=== PATIENT | female | born 1975 | race Caucasian/White ===

== ENCOUNTER 2019-01-06 11:28 | Inpatient (IN) | payer OTHER ==
[2019-01-06 12:40] LABS: WHITE BLOOD COUNT 8.6 10^3/ul (4.8-10.8)
[2019-01-06 12:40] LABS: HEMATOCRIT 29.4 % (37.0-47.0); HEMOGLOBIN 8.8 g/dl (12.0-16.0); MEAN CORPUSCULAR HEMOGLOBIN 24.3 pg (29.0-33.0); MEAN CORPUSCULAR HGB CONC 29.9 g/dl (32.0-37.0); MEAN CORPUSCULAR VOLUME 81.2 fl (82.0-101.0); MEAN PLATELET VOLUME 8.5 fl (7.4-10.4); PLATELET COUNT 715 10^3/UL (140-415); RED BLOOD COUNT 3.62 10^6/ul (4.20-5.40); RED CELL DISTRIBUTION WIDTH 17.4 % (11.5-14.5)
[2019-01-06] MEDS: PIPER-TAZO 3.375 GM IV (PMX) 100 ML IVPB (12:43)
[2019-01-06] MEDS: SODIUM CHLORIDE 0.9% 1L BAG IV* (12:43)
[2019-01-06 12:47] LABS: ADD MAN DIFF? YES
[2019-01-06 13:00] LABS: ALANINE AMINOTRANSFERASE 12 IU/L (13-69); ALBUMIN 3.6 g/dl (3.3-4.9); ALBUMIN/GLOBULIN RATIO 0.76; ALKALINE PHOSPHATASE 112 IU/L (42-121); ANION GAP 8 (5-13); ASPARTATE AMINO TRANSFERASE 21 IU/L (15-46); BLOOD UREA NITROGEN 11 mg/dl (7-20); C-REACTIVE PROTEIN 4.8 mg/dl (0.0-0.9); CALCIUM 9.2 mg/dl (8.4-10.2); CARBON DIOXIDE 28 mmol/L (21-31); CHLORIDE 102 mmol/L (97-110); CREATININE 0.67 mg/dl (0.44-1.00); Estimated GFR > 60 mL/min (>60); GLUCOSE 96 mg/dl (70-220); INR 1.07; PARTIAL THROMBOPLASTIN TIME 37.9 Sec (23.0-35.0); POTASSIUM 4.2 mmol/L (3.5-5.1); PT RATIO 1.1; SODIUM 138 mmol/L (135-144); TOTAL PROTEIN 8.3 g/dl (6.1-8.1)
[2019-01-06 13:13] LABS: ANISOCYTOSIS 1+ (0-0); BAND NEUTROPHILS % (M) 1 % (0-4); EOSINOPHILS % (M) 1 % (0-7); LYMPHOCYTES % (M) 24 % (15-51); MICROCYTOSIS 1+ (0-0); MONOCYTE #M 0.4 10^3/ul (0.3-0.9); MONOCYTES % (M) 5 % (0-11); PLATELET ESTIMATE INCREASED; PLATELET MORPHOLOGY COMMENT @See below; POIKILOCYTOSIS 2+ (0-0); POLYCHROMASIA 1+ (0-0); REACTIVE LYMPHOCYTES #M 0.5 10^3/ul (0.0-0.0); REACTIVE LYMPHOCYTES% (M) 6 % (0-0); SEG NEUT #M 5.4 10^3/ul (1.6-7.5); SEGMENTED NEUTROPHILS (M) % 63 % (39-77); SMUDGE%M 13 % (0-0); TARGET CELLS 1+ (0-0); TEAR DROP CELLS 1+ (0-0)
[2019-01-06] MEDS: CLINDAMYCIN 900 MG/D5W (PMX) 50 ML IVPB (13:21)
[2019-01-06 13:55] LABS: ERYTHROCYTE SEDIMENTATION RATE 80 mm/Hr (0-20)
[2019-01-06] MEDS: VANCOMYCIN 1 GM (PMX) 250 ML IVPB (14:24)
[2019-01-06] MEDS ORDERED: ACETAMINOPHEN 325 MG TAB PO (16:00)
[2019-01-06] MEDS ORDERED: ONDANSETRON 4 MG INJ IV (16:00)
[2019-01-06] MEDS ORDERED: NACL 0.9% 3 ML SYG IV (16:30)
[2019-01-06] MEDS ORDERED: HYDROCODONE/APAP (5/325) TAB PO (16:30)
[2019-01-06] MEDS: NICOTINE (21 MG/24 HR) PATCH TRANSDERM (17:00)
[2019-01-06 18:50] LABS: LACTIC ACID 2.4 mmol/L (0.5-2.0)
[2019-01-06 19:16] LABS: HEPATITIS B SURFACE ANTIGEN NEGATIVE (NEGATIVE)
[2019-01-06 19:33] LABS: HEPATITIS C VIRAL ANTIBODY NEGATIVE (NEGATIVE); HIV 1&2 ANTIBODY NEGATIVE (NEGATIVE)
[2019-01-06 20:00] LABS: HEPATITIS B SURFACE ANTIBODY NEGATIVE (NEGATIVE)
[2019-01-06] MEDS: LORAZEPAM 2 MG INJ IV (22:26)
[2019-01-06] MEDS ORDERED: NICOTINE POLACRILEX 4 MG GUM BUCCAL (22:30)
[2019-01-06] MEDS: ALPRAZOLAM 0.5 MG TAB PO (22:45)
[2019-01-07 01:29] LABS: LACTIC ACID 1.8 mmol/L (0.5-2.0)
[2019-01-07 05:57] LABS: ADD MAN DIFF? NO
[2019-01-07 06:07] LABS: BASOPHILS % 0.5 % (0.0-2.0); EOSINOPHILS # 0.1 10^3/ul (0.0-0.5); EOSINOPHILS % 1.3 % (0.0-7.0); HEMATOCRIT 29.4 % (37.0-47.0); HEMOGLOBIN 8.7 g/dl (12.0-16.0); MEAN CORPUSCULAR HEMOGLOBIN 23.9 pg (29.0-33.0); MEAN CORPUSCULAR HGB CONC 29.6 g/dl (32.0-37.0); MEAN CORPUSCULAR VOLUME 80.8 fl (82.0-101.0); MEAN PLATELET VOLUME 8.5 fl (7.4-10.4); MONOCYTE # 0.3 10^3/ul (0.3-0.9); MONOCYTES % 3.6 % (0.0-11.0); NEUTROPHILS % 80.5 % (39.0-77.0); PLATELET COUNT 730 10^3/UL (140-415); RED BLOOD COUNT 3.64 10^6/ul (4.20-5.40)
[2019-01-07 06:07] LABS: WHITE BLOOD COUNT 7.4 10^3/ul (4.8-10.8)
[2019-01-07] MEDS: ALPRAZOLAM 0.5 MG TAB PO (06:17)
[2019-01-07] MEDS: NICOTINE POLACRILEX 2 MG GUM BUCCAL ×3 (06:17→16:15)
[2019-01-07 06:38] LABS: ALANINE AMINOTRANSFERASE 18 IU/L (13-69); ALBUMIN 2.9 g/dl (3.3-4.9); ALBUMIN/GLOBULIN RATIO 0.69; ALKALINE PHOSPHATASE 81 IU/L (42-121); ANION GAP 2 (5-13); ASPARTATE AMINO TRANSFERASE 15 IU/L (15-46); BLOOD UREA NITROGEN 12 mg/dl (7-20); CALCIUM 9.3 mg/dl (8.4-10.2); CARBON DIOXIDE 29 mmol/L (21-31); CHLORIDE 109 mmol/L (97-110); CREATININE 0.66 mg/dl (0.44-1.00); Estimated GFR > 60 mL/min (>60); GLUCOSE 114 mg/dl (70-220); MAGNESIUM 1.8 mg/dl (1.7-2.5); PHOSPHORUS 4.7 mg/dl (2.5-4.9); POTASSIUM 4.7 mmol/L (3.5-5.1); SODIUM 140 mmol/L (135-144); TOTAL PROTEIN 7.1 g/dl (6.1-8.1)
[2019-01-07 07:20] LABS: HEMOGLOBIN A1C 5.9 % (0-5.9)
[2019-01-07] MEDS: NICOTINE (21 MG/24 HR) PATCH TRANSDERM (09:00)
[2019-01-07] MEDS: IOHEXOL 300MG/ML 150 ML BTL (09:29)
[2019-01-07] MEDS: SOD CHLORIDE 0.9% 100 ML (09:29)
[2019-01-07 09:43] LABS: IRON 29 ug/dl (35-150)
[2019-01-07 09:52] LABS: % IRON SATURATION 10 % SAT (22-52); TOTAL IRON BINDING CAPACITY 292 ug/dl (241-421)
[2019-01-07 10:19] LABS: FERRITIN 15.1 ng/ml (6.2-137.0)
[2019-01-07 21:17] LABS: RAPID PLASMA REAGIN NONREACTIVE (NR)
[2019-01-08] MEDS: ALPRAZOLAM 0.5 MG TAB PO (01:10)
[2019-01-08] MEDS: NICOTINE POLACRILEX 2 MG GUM BUCCAL (08:57)
[2019-01-08] MEDS: NICOTINE (21 MG/24 HR) PATCH TRANSDERM (09:00)
== END 2019-01-08 10:45 | disposition left against medical advice (07) | DRG 593 ==
LOC: E/R 11:28 → PP2 15:56 → 5EC 23:00
DX: L98.419 Non-pressure chronic ulcer of buttock with unspecified severity (principal); F33.2 Major depressive disorder, recurrent severe without psychotic features; L97.819 Non-pressure chronic ulcer of other part of right lower leg with unspecified severity; F17.210 Nicotine dependence, cigarettes, uncomplicated; F11.90 Opioid use, unspecified, uncomplicated; J45.909 Unspecified asthma, uncomplicated; Z59.0 Homelessness
CPT/HCPCS: 36415; 71045; 72170; 72193; 80053; 82728; 82962; 83036; 83540; 83605; 83735; 84100; 84703; 85025; 85610; 85651; 85730; 86140; 86592; 86703; 86706; 86803; 87040; 87070; 87075; 87340; 93005; 96365; 96367; 96375; 99285-25

== ENCOUNTER 2019-03-27 20:27 | Emergency (ER) | payer OTHER ==
[2019-03-27 21:26] LABS: URINE BLOOD (Dip) POC 1+ (NEGATIVE); URINE GLUCOSE (Dip) POC Negative (NEGATIVE); URINE KETONES (Dip) POC 3+ (NEGATIVE); URINE LEUKOCYTE EST (Dip) POC Negative (NEGATIVE); URINE NITRITE (Dip) POC Negative (NEGATIVE); URINE TOTAL PROTEIN POC 2+ (NEGATIVE)
[2019-03-27] MEDS: IBUPROFEN 800 MG TAB PO (21:34)
== END 2019-03-27 22:45 | disposition home or self-care (01) ==
LOC: E/R 20:27
DX: F15.10 Other stimulant abuse, uncomplicated (principal); F41.9 Anxiety disorder, unspecified; R10.9 Unspecified abdominal pain; J45.909 Unspecified asthma, uncomplicated; F17.210 Nicotine dependence, cigarettes, uncomplicated
CPT/HCPCS: 81003; 81025; 99282

== ENCOUNTER 2019-06-18 10:57 | Inpatient (IN) | payer OTHER ==
[2019-06-18] MEDS ORDERED: PIPER-TAZO 3.375 GM IV (PMX) 100 ML IVPB (12:00)
[2019-06-18] MEDS ORDERED: LORAZEPAM 1 MG TAB PO (12:30)
[2019-06-18] MEDS ORDERED: SOD CHLORIDE 0.9% 1,000 ML IV (12:30)
[2019-06-18] MEDS ORDERED: VANCOMYCIN IV PER PHARMACY XX (12:30)
[2019-06-18] MEDS ORDERED: ENOXAPARIN 40 MG/0.4 ML SYG SC (12:30)
[2019-06-18] MEDS ORDERED: morphine 2 MG INJ IV (12:30)
[2019-06-18] MEDS ORDERED: VANCOMYCIN 750 MG (PMX) 250 ML IVPB (14:00)
[2019-06-19] MEDS ORDERED: PANTOPRAZOLE (EC) 40 MG TAB PO (06:00)
== END 2019-06-18 12:34 | disposition left against medical advice (07) | DRG 603 ==
LOC: 5EC 10:57
DX: L08.89 Other specified local infections of the skin and subcutaneous tissue (principal); F11.20 Opioid dependence, uncomplicated; F15.20 Other stimulant dependence, uncomplicated; E46 Unspecified protein-calorie malnutrition; F41.9 Anxiety disorder, unspecified; Z59.0 Homelessness; D64.9 Anemia, unspecified; B18.2 Chronic viral hepatitis C; Z68.20 Body mass index [BMI] 20.0-20.9, adult; F31.9 Bipolar disorder, unspecified; F17.210 Nicotine dependence, cigarettes, uncomplicated